=== PATIENT | female | born 1950 | race Caucasian/White ===

== ENCOUNTER → 2017-01-11 | Outpatient (CLI) | payer BC | LOC: RAD 14:38 | PROVIDERS: ATTEND Physician Assistant | DX: R05 Cough (principal); J18.1 Lobar pneumonia, unspecified organism | CPT/HCPCS: 71020 ==

== ENCOUNTER → 2017-01-11 | Outpatient (CLI) | payer BC ==
[2017-01-11 16:29] VITALS: BP 100/70
== END ==
LOC: MHUC 14:15
PROVIDERS: ATTEND Physician Assistant
DX: J18.1 Lobar pneumonia, unspecified organism (principal)
CPT/HCPCS: 99213

== ENCOUNTER → 2017-02-03 | Outpatient (CLI) | payer MEDICARE, BC ==
[~2017-02-03] MED LIST: ALBU8.5H2 IH; AMOX1TAB12 PO; AZIT250T81 PO
--- NOTE | 2017-02-03 13:28 | Diagnostic Imaging Report ---
CHEST PA/LAT (2 VIEW)* INDICATION: Follow-up pneumonia. COMPARISON: 01/11/2017. FINDINGS: The right lower lobe heterogeneous consolidations have near completely resolved. There is a small amount of residual atelectasis. No new focal pneumonic consolidation, pleural effusion or pneumothorax. Normal heart size and pulmonary vasculature. IMPRESSION: Resolution of right lower lobe pneumonia with a small amount of residual subsegmental atelectasis. Dictated by: Dictated on workstation # [id number]
== END ==
LOC: RAD 12:07
PROVIDERS: ATTEND Family Medicine
DX: J98.8 Other specified respiratory disorders (principal)
CPT/HCPCS: 71020

== ENCOUNTER → 2017-02-03 | Outpatient (REF) | payer MEDICARE, BC ==
[2017-02-03 12:33] LABS: BASOPHILS % (AUTO) 0 % (0-2); EOSINOPHILS # (AUTO) 0.3 10^3uL; EOSINOPHILS % (AUTO) 3 % (0-4); LYMPHOCYTES # (AUTO) 2.9 X10^3; MEAN CORPUSCULAR HEMOGLOBIN 29.1 PG (26.0-34.0); MEAN CORPUSCULAR VOLUME 94 FL (80-100); MEAN PLATELET VOLUME 10.5 FL (6.0-9.5); MONOCYTES # (AUTO) 0.8 X10^3; MONOCYTES % (AUTO) 8 % (3-11); NEUTROPHILS # (AUTO) 6.1 X10^3; NEUTROPHILS % (AUTO) 60 % (51-67); PLATELET COUNT 214 10^3uL (150-450); WHITE BLOOD COUNT 10.13 10^3uL (4.0-11.0)
[2017-02-03 12:38] LABS: BILIRUBIN,URINE Negative (Negative); CLARITY,URINE Clear; COLOR,URINE Yellow; GLUCOSE, URINE (UA) Negative (Negative); LEUKOCYTE ESTERASE ,URINE 1+ (Negative); UROBILINOGEN,URINE 0.2 mg/dL (0.2-1.0)
[2017-02-03 12:41] LABS: MEAN CORPUSCULAR HGB CONC 30.9 g/dL (31.0-37.0)
[2017-02-03 12:42] LABS: URINE CENTRIFUGED VOLUME 12 mL
[2017-02-03 12:43] LABS: ALBUMIN 4.1 g/dL (3.4-5.0); ANION GAP 15.2 MEQ/L (3-15); TOTAL PROTEIN 7.7 g/dL (6.4-8.5)
== END ==
LOC: LAB 11:40
PROVIDERS: ATTEND Family Medicine
DX: I10 Essential (primary) hypertension (principal); R10.814 Left lower quadrant abdominal tenderness; E78.5 Hyperlipidemia, unspecified
CPT/HCPCS: 80053; 81003; 81015; 82150; 83690; 85025; 87088

== ENCOUNTER → 2017-02-08 | Outpatient (CLI) | payer MEDICARE, BC ==
--- NOTE | 2017-02-08 10:17 | Diagnostic Imaging Report ---
PROCEDURE: CT of the abdomen with and without contrast and CT of the pelvis with contrast. TECHNIQUE: Precontrast acquisitions were acquired through the abdomen. Multiple contiguous axial images were obtained through the abdomen and pelvis after administration of intravenous contrast. INDICATION: Abdominal pain. COMPARISON: None available. FINDINGS: There are atelectatic changes in the lung bases, greater on the right. No pericardial or pleural effusion. No free intraperitoneal air or fluid. The liver, gallbladder and spleen are normal. No adrenal mass. Pancreas enhances normally without mass lesion or peripancreatic inflammatory changes. Precontrast imaging, there are no renal or ureteral calculi. Postcontrast imaging demonstrates normal enhancement of the kidneys without suspicious mass lesion. There is no obstructive uropathy. Ureters are normal in caliber without discrete intraluminal filling defect to suggest urothelial neoplasm. Urinary bladder is partially distended without discrete wall thickening. However, evaluation of the urinary bladder is suboptimal due to incomplete distention. Status post hysterectomy. No adnexal mass. The stomach is partially distended with apparent wall thickening of the antrum, although this could be due to complete distention. There are no surrounding inflammatory changes. No dilated bowel loops to indicate bowel obstruction. The appendix is not visualized and may be surgically absent. Sigmoid colon diverticulosis without evidence of active diverticulitis. No pericolonic inflammatory changes. Normal caliber abdominal aorta. No abdominal or pelvic lymphadenopathy. No concerning osseous lesions. Small fat-containing umbilical hernia. IMPRESSION: 1. There is mild circumferential wall thickening of the antrum of the stomach. This could be due to incomplete distention and normal gastric musculature. However, correlation for gastritis is suggested. 2. Sigmoid colon diverticulosis without diverticulitis. 3. No obstructive uropathy or urinary tract calculi. 4. Status post hysterectomy. 5. No intra-abdominal lymphadenopathy. Dictated by: Dictated on workstation # [id number]
== END ==
LOC: RAD 08:13
PROVIDERS: ATTEND Family Medicine
DX: R10.814 Left lower quadrant abdominal tenderness (principal); K57.30 Diverticulosis of large intestine without perforation or abscess without bleeding
CPT/HCPCS: 74178; Q9967

== ENCOUNTER → 2017-02-10 | Outpatient (CLI) | payer BC, MEDICARE | LOC: RAD 12:12 | PROVIDERS: ATTEND Family Medicine | DX: I51.7 Cardiomegaly (principal) | CPT/HCPCS: 93306 ==